=== PATIENT | female | born 1940 | race Caucasian/White ===

== ENCOUNTER 2016-12-23 10:24 | Emergency (ER) | payer MEDICARE, OTHER ==
[2016-12-23] MEDS ORDERED: AMOXicillin 250 MG CAP ONE (11:23)
[2016-12-23] MEDS ORDERED: predniSONE 20 MG TAB ONE (11:23)
--- NOTE | 2016-12-23 11:35 | ERRECORD ---
[facility] EMERGENCY RECORD HPI GENERAL (11:22 LLDO) CHIEF COMPLAINT: Patient presents for evaluation of right face, right ear and right periorbital pain for 3 days. feels like her previous sinus infections. HISTORIAN: History provided by patient. MECHANISM OF INJURY: Known mechanism, Mechanism of injury: known hay fever is flaring, No alcohol use associated with this incident, No drug use associated with this incident, No domestic violence associated with this incident. LOCATION: Symptoms are generalized. QUALITY: Pain is dull in nature, described as aching. SEVERITY: Maximum severity of symptoms moderate, Currently symptoms are moderate. TIME COURSE: Gradual onset of symptoms, Symptoms are worsening, are constant. ASSOCIATED WITH: Associated with ONLY ABOVE. EXACERBATED BY: Patient's condition exacerbated by ACTIVITY, POSITION, MOVEMENT. RELIEVED BY: Patient's condition relieved by nothing. ROS CONSTITUTIONAL: Historian reports fatigue. (11:24 LLDO) EYES: Negative eye review of systems, Historian denies eye pain, denies eye redness, denies eye discharge. (11:27 LLDO) ENT: Historian reports sinus pain, reports sore throat. (11:24 LLDO) CARDIOVASCULAR: Negative cardiovascular review of systems, Historian denies chest pain, no radiation, Historian denies diaphoresis, denies syncope. (11:27 LLDO) RESPIRATORY: Negative respiratory review of systems, Historian denies cough, denies shortness of breath, denies sputum. (11:27 LLDO) GI: Negative gastrointestinal review of systems, Historian denies abdominal pain, denies constipation, denies diarrhea, denies nausea, denies vomiting. (11:27 LLDO) GENITOURINARY FEMALE: Negative genitourinary review of systems, Historian denies dysuria, denies frequency, denies urgency. (11:27 LLDO) MUSCULOSKELETAL: Negative musculoskeletal review of systems, Historian denies arthralgias, denies back pain, denies injury, denies myalgias, denies neck pain. (11:27 LLDO) SKIN: Negative skin review of systems, Historian denies cellulitis, denies rash, denies skin changes, denies skin lesions. (11:27 LLDO) NEUROLOGIC: Historian denies confusion, denies dizziness, denies dysphasia, denies focal weakness, denies gait changes, reports headache, denies irritability, denies lethargy, denies mental status changes. (11:24 LLDO) HEMO/LYMPHATIC: Normal hematologic/lymphatic system review, Historian denies abnormal blood clotting, denies gum bleeding, denies &a-1R&a+25V*p+0X*[id number]*c202B*c15G*c2P*p-0X&a-25V&a+1R Name: Anamaria Minaya : 1940 F76 MedRec: [id number] AcctNum: [id number] Prepared: [facility] Dec 23, 2016 11:33 by Interface Page 1 of 4 pMD [facility] EMERGENCY RECORD petechiae. (11:27 LLDO) ALLERGIC/IMMUNOLOGIC: Normal allergy/immunologic system review, Historian denies eczema, denies environmental allergies, denies food allergies. (11:27 LLDO) PSYCHIATRIC: Negative psychiatric review of systems, Historian denies alcohol abuse, denies anxiety, denies depression, denies drug abuse, denies hallucinations. (11:27 LLDO) NOTES: All systems reviewed, negative except as described above. (11:24 LLDO) PAST MEDICAL HISTORY MEDICAL HISTORY: Notes: [id number], Notes: OSTEOPOROSIS, Flu vaccine not up to date, Tetanus immunization up to date, Pneumococcal vaccine not up to date, Past medical history includes history of hypertension, which has been treated. ([facility] Dec 23, 2016 10:37 JPER) FEMALE SURGICAL HISTORY: VERIFIED 12-23-16, 2BENIGN CYSTS REMOVED FROM BILATERAL BREAST, Surgical history of cholecystectomy, Surgical history of tonsillectomy. ([facility] Dec 23, 2016 10:37 JPER) PSYCHIATRIC HISTORY: Notes: DENIES, No previous psychiatric history. ([facility] Dec 23, 2016 10:37 JPER) SOCIAL HISTORY: Patient denies alcohol use, Patient denies drug use, Patient has no smoking history, Lives at home, with family. ([facility] Dec 23, 2016 10:37 JPER) NOTES: Nursing records reviewed, Agree with nursing records, Medication list reviewed. (11:26 LLDO) KNOWN ALLERGIES Entex CURRENT MEDICATIONS amLODIPine: TABLET : Strength - 10 mg : ORAL Patient Dose: 5 mg Oral once a day (in the morning). (10:38 JPER) hydrochlorothiazide: TABLET : Strength - 25 mg : ORAL Patient Dose: 12.5. (10:38 JPER) azelastine: AEROSOL, SPRAY WITH PUMP (ML) : Strength - 205.5 mcg (0.15 %) : NASAL Patient Dose: once a day (in the morning). (10:43 JPER) Flovent: AEROSOL WITH ADAPTER (GRAM) : Strength - 220 mcg : INHALATION Patient Dose: once a day (in the morning). (10:45 JPER) Sudafed: TABLET : Strength - 30 mg : ORAL Patient Dose: As Needed. (10:46 JPER) alendronate: TABLET : Strength - 35 mg : ORAL &a-1R&a+25V*p+0X*v4646H*c202B*c15G*c2P*p-0X&a-25V&a+1R Name: Anamaria Minaya : 1940 F76 MedRec: [id number] AcctNum: [id number] Prepared: Sat Dec 23, 2016 11:33 by Interface Page 2 of 4 pMD [facility] EMERGENCY RECORD Patient Dose: once a day (in the morning). (10:46 JPER) VITAL SIGNS (10:33 JPER) VITAL SIGNS: BP: 139/71, Pulse: 80, Resp: 16, Temp: 98.0 (Tympanic), O2 sat: 100 on Room Air, Time: 12/23/2016 10:33. PHYSICAL EXAM CONSTITUTIONAL: Vital signs reviewed, Patient afebrile, Pulse normal, Blood pressure normal, Respiratory rate normal, Patient appears, uncomfortable, Patient appears in pain, in moderate pain distress, Patient alert and oriented to person, place and time. (11:25 LLDO) HEAD: Head exam normal, Head exam included findings of head atraumatic, normocephalic. (11:27 LLDO) EYES: Eye exam normal, Eye exam included findings of eyelids normal to inspection, Pupils equally round and reactive to light, Extraocular muscles intact. (11:27 LLDO) ENT: Ear exam normal, Nose exam normal, Pharynx exam normal, Uvula exam normal, Tonsil exam normal, Mouth exam included findings of, teeth normal, Sinus exam included findings of frontal sinuses normal, Maxillary sinuses with, tenderness on the right, erythema on the right, swelling on the right. (11:25 LLDO) NECK: Neck exam included findings of normal range of motion, Trachea midline, Thyroid normal, no meningeal signs, no cervical adenopathy, no tenderness. (11:25 LLDO) RESPIRATORY CHEST: Respiratory exam included findings of no respiratory distress, Breath sounds clear, Chest exam included findings of chest movement symmetrical, Chest expansion equal, no tenderness. (11:25 LLDO) CARDIOVASCULAR: Cardiovascular assessment normal, Cardiovascular exam included findings of heart rate regular rate and rhythm, Heart sounds normal. (11:27 LLDO) ABDOMEN FEMALE: Abdominal exam normal, Abdominal exam included findings of abdomen nontender, Bowel sounds normal, no peritoneal signs. (11:27 LLDO) BACK: Back exam normal, Back exam included findings of normal inspection, range of motion normal. (11:27 LLDO) UPPER EXTREMITY: Upper extremity exam normal, Upper extremity exam included findings of inspection normal, Range of motion normal. (11:27 LLDO) LOWER EXTREMITY: Lower extremity exam normal, Lower extremity exam included findings of inspection normal, Range of motion normal. (11:27 LLDO) NEURO: Neuro exam normal, Neuro exam findings include patient oriented to person, place and time, Speech normal, Colleen coma scale 15. (11:27 LLDO) SKIN: Skin exam normal, Skin exam included findings of skin warm, dry, and normal in color, no rash. (11:27 LLDO) PSYCHIATRIC: Psychiatric exam normal, Psychiatric exam included &a-1R&a+25V*p+0X*[id number]*c202B*c15G*c2P*p-0X&a-25V&a+1R Name: Anamaria Minaya : 1940 F76 MedRec: [id number] AcctNum: [id number] Prepared: Sat Dec 23, 2016 11:33 by Interface Page 3 of 4 pMD [facility] EMERGENCY RECORD findings of patient oriented to person place and time, Normal affect. (11:27 LLDO) MEDICATION ADMINISTRATION SUMMARY Drug Name: amoxicillin, Dose Ordered: 500 mg, Route: Oral, Status: Given, Time: 11:12/23/2016, Drug Name: predniSONE oral, Dose Ordered: 60 mg, Route: Oral, Status: Given, Time: 11:12/23/2016, Detailed record available in Medication Service section. PROBLEM LIST No recorded problems DIAGNOSIS (11:15 LLDO) FINAL: PRIMARY: ACUTE SINUSITIS UNSPECIFIED, ADDITIONAL: Hay fever. PRESCRIPTION (11:18 LLDO) amoxicillin: CAPSULE (HARD, SOFT, ETC.) : 500 mg : ORAL : Quantity: 1 Unit: cap(s) Route: ORAL Schedule: 3 times a day Dispense: 30 May substitute. Refills: No Refills . NOTES: No Refills. predniSONE oral: TABLET : 20 mg : ORAL : Quantity: * Unit: Route: ORAL Schedule: See Notes Dispense: 2O May substitute. Refills: No Refills . NOTES: 3 TABS PER DAY FOR 3 DAYS, THEN 2 TABS PER DAY FOR 3 DAYS, THEN ONE TAB PER DAY UNTIL GONE No Refills. Tylenol-Codeine #3: TABLET : 300 mg-30 mg : ORAL : Quantity: 1-2 Unit: tab(s) Route: ORAL Schedule: every 4 hours prn Dispense: 30 Unit: tab(s) May substitute. Refills: No Refills . NOTES: No Refills. DISPOSITION PATIENT: Disposition Type: Discharge, Disposition: *Discharge Home. (11:15 LLDO) Patient left the department. (11:28 HUNTER) Willingham: HUNTER=PAM Us, Clementina DO=MD Evelyn, Daniele &a-1R&a+25V*p+0X*w1416X*c202B*c15G*c2P*p-0X&a-25V&a+1R Name: Anamaria Minaya : 1940 F76 MedRec: [id number] AcctNum: [id number] Prepared: Sat Dec 23, 2016 11:33 by Interface Page 4 of 4 pMD MTDD
--- NOTE | 2016-12-23 11:41 | PICIS ---
[facility] EMERGENCY RECORD TRIAGE (SunDec 23, 2016 10:37 JPER) PATIENT: NAME: Anamaria Minaya, AGE: 76, GENDER: female, : Sun1940, TIME OF GREET: SunDec 23, 2016 10:25, PREFERRED LANGUAGE: Kinyarwanda, RACE: WHITE, ETHNICITY: Not or , ECODE BILLING MAP: [facility], SSN: [id number], Zip Code: [address], KG WEIGHT: 77.56, PHONE: , , , PERSON ID: [id number], PCP: Rj ERICKSON LINDA. (SunDec 23, 2016 10:37 JPER) COMPLAINT: ALLERGIES. ([facility] Dec 23, 2016 10:37 JPER) ADMISSION: URGENCY: 4 Non Urgent, ADMISSION SOURCE: Home, TRANSPORT: Walk-in, BED: ED -05. ([facility] Dec 23, 2016 10:37 JPER) ASSESSMENT: Assessment: PT C/O RIGHT EAR AND EYE DISCOMFORT; RIGHT HEADACHE; SORE THROAT ONSET YEST. ([facility] Dec 23, 2016 10:37 JPER) PAIN: Location RIGHT FACIAL / EAR. ([facility] Dec 23, 2016 10:37 JPER) IMMUNIZATIONS: Flu vaccine not up to date, Tetanus immunization up to date, Pneumococcal vaccine not up to date. ([facility] Dec 23, 2016 10:37 JPER) SIRS SCORING: Heart Rate 55-109 (0), Temp range 96.8-101.1 (0), respiratory rate 12-24 (0), Mental Status altered: no (0). ([facility] Dec 23, 2016 10:37 JPER) TRIAGE SCREENING: Patient denies suicidal ideation, Patient denies presence of domestic violence. ([facility] Dec 23, 2016 10:37 JPER) PROVIDERS: TRIAGE NURSE: Clementina Us RN. ([facility] Dec 23, 2016 10:37 JPER) VITAL SIGNS: BP 139/71, Pulse 80, Resp 16, Temp 98.0, (Tympanic), O2 Sat 100, on Room Air, Time 12/23/2016 10:33. (10:33 JPER) PREVIOUS VISIT ALLERGIES: Entex. ([facility] Dec 23, 2016 10:37 JPER) KNOWN ALLERGIES Entex CURRENT MEDICATIONS amLODIPine: TABLET : Strength - 10 mg : ORAL Patient Dose: 5 mg Oral once a day (in the morning). (10:38 JPER) hydrochlorothiazide: TABLET : Strength - 25 mg : ORAL Patient Dose: 12.5. (10:38 JPER) azelastine: AEROSOL, SPRAY WITH PUMP (ML) : Strength - 205.5 mcg (0.15 %) : NASAL Patient Dose: once a day (in the morning). (10:43 JPER) Flovent: AEROSOL WITH ADAPTER (GRAM) : Strength - 220 mcg : INHALATION Patient Dose: once a day (in the morning). (10:45 JPER) Sudafed: TABLET : Strength - 30 mg : ORAL Patient Dose: As Needed. (10:46 JPER) alendronate: &a-1R&a+25V*p+0X*b6931C*c202B*c15G*c2P*p-0X&a-25V&a+1R Name: Anamaria Minaya : 1940 F76 MedRec: [id number] AcctNum: [id number] Prepared: Sat Dec 23, 2016 11:39 by Interface Page 1 of 6 pMD [facility] EMERGENCY RECORD TABLET : Strength - 35 mg : ORAL Patient Dose: once a day (in the morning). (10:46 JPER) VITAL SIGNS (10:33 JPER) VITAL SIGNS: BP: 139/71, Pulse: 80, Resp: 16, Temp: 98.0 (Tympanic), O2 sat: 100 on Room Air, Time: 12/23/2016 10:33. NURSING ASSESSMENT: ENT (10:41 JPER) CONSTITUTIONAL: Patient arrives ambulatory, Gait steady, History obtained from patient, Patient appears comfortable, Patient cooperative, Patient alert, Oriented to person, place and time, Skin warm, Skin dry, Skin normal in color, Mucous membranes pink, Mucous membranes moist, Patient is well-groomed, Patient complains of RIGHT FACIAL; RIGHT EAR PAIN; SORE THROAT, "ALLERGIES". PAIN: aching pain, to the right ear, to the throat, Pain exacerbated by nothing, Nothing has been tried to alleviate the pain. ENT: Able to swallow, Speech normal. RESPIRATORY/CHEST: Breath sounds clear, Respiratory assessment findings include respiratory effort easy, Respirations regular, Conversing normally, Neck and chest exam findings include trachea midline, Chest expansion equal, Chest movement symmetrical. NOTES: Emotional support needed and given. MEDICATION ADMINISTRATION SUMMARY Drug Name: amoxicillin, Dose Ordered: 500 mg, Route: Oral, Status: Given, Time: 11:12/23/2016, Drug Name: predniSONE oral, Dose Ordered: 60 mg, Route: Oral, Status: Given, Time: 12/23/2016, Detailed record available in Medication Service section. MEDICATION SERVICE (11:[address] [facility]) amoxicillin: Order: amoxicillin (amoxicillin trihydrate) - Dose: 500 mg : Oral Schedule: Now Ordered by: Daniele Rivas MD Entered by: Daniele Rivas MD Sat Dec 23, 2016 11:13 Documented as given by: Clementina Us RN Sat Dec 23, 2016 11:20 Patient, Medication, Dose, Route and Time verified prior to administration. Amount given: 500MG, Site: Medication administered P.O., Correct patient, time, route, dose and medication confirmed prior to administration, Patient advised of actions and side-effects prior to administration, Allergies confirmed and medications reviewed prior to administration, Administered by MERCEDES OROZCO, Patient in position of comfort, Side rails up, Cart in lowest position, Family at bedside. predniSONE oral: Order: predniSONE oral (prednisone) - Dose: 60 mg : Oral Schedule: Now &a-1R&a+25V*p+0X*l1465F*c202B*c15G*c2P*p-0X&a-25V&a+1R Name: Anamaria Minaya : 1940 F76 MedRec: [id number] AcctNum: [id number] Prepared: Sat Dec 23, 2016 11:39 by Interface Page 2 of 6 pMD [facility] EMERGENCY RECORD Ordered by: Daniele Rivas MD Entered by: Daniele Rivas MD Sat Dec 23, 2016 11:13 Documented as given by: Clementina Us RN Sat Dec 23, 2016 11:20 Patient, Medication, Dose, Route and Time verified prior to administration. Amount given: 60MG, Site: Medication administered P.O., Correct patient, time, route, dose and medication confirmed prior to administration, Patient advised of actions and side-effects prior to administration, Allergies confirmed and medications reviewed prior to administration, Administered by MERCEDES OROZCO. HPI GENERAL (11:22 LLDO) CHIEF COMPLAINT: Patient presents for evaluation of right face, right ear and right periorbital pain for 3 days. feels like her previous sinus infections. HISTORIAN: History provided by patient. MECHANISM OF INJURY: Known mechanism, Mechanism of injury: known hay fever is flaring, No alcohol use associated with this incident, No drug use associated with this incident, No domestic violence associated with this incident. LOCATION: Symptoms are generalized. QUALITY: Pain is dull in nature, described as aching. SEVERITY: Maximum severity of symptoms moderate, Currently symptoms are moderate. TIME COURSE: Gradual onset of symptoms, Symptoms are worsening, are constant. ASSOCIATED WITH: Associated with ONLY ABOVE. EXACERBATED BY: Patient's condition exacerbated by ACTIVITY, POSITION, MOVEMENT. RELIEVED BY: Patient's condition relieved by nothing. ROS CONSTITUTIONAL: Historian reports fatigue. (11:24 LLDO) EYES: Negative eye review of systems, Historian denies eye pain, denies eye redness, denies eye discharge. (11:27 LLDO) ENT: Historian reports sinus pain, reports sore throat. (11:24 LLDO) CARDIOVASCULAR: Negative cardiovascular review of systems, Historian denies chest pain, no radiation, Historian denies diaphoresis, denies syncope. (11:27 LLDO) RESPIRATORY: Negative respiratory review of systems, Historian denies cough, denies shortness of breath, denies sputum. (11:27 LLDO) GI: Negative gastrointestinal review of systems, Historian denies abdominal pain, denies constipation, denies diarrhea, denies nausea, denies vomiting. (11:27 LLDO) GENITOURINARY FEMALE: Negative genitourinary review of systems, Historian denies dysuria, denies frequency, denies urgency. (11:27 LLDO) MUSCULOSKELETAL: Negative musculoskeletal review of systems, &a-1R&a+25V*p+0X*o8983R*c202B*c15G*c2P*p-0X&a-25V&a+1R Name: Anamaria Minaya : 1940 F76 MedRec: [id number] AcctNum: [id number] Prepared: Sat Dec 23, 2016 11:39 by Interface Page 3 of 6 pMD [facility] EMERGENCY RECORD Historian denies arthralgias, denies back pain, denies injury, denies myalgias, denies neck pain. (11:27 LLDO) SKIN: Negative skin review of systems, Historian denies cellulitis, denies rash, denies skin changes, denies skin lesions. (11:27 LLDO) NEUROLOGIC: Historian denies confusion, denies dizziness, denies dysphasia, denies focal weakness, denies gait changes, reports headache, denies irritability, denies lethargy, denies mental status changes. (11:24 LLDO) HEMO/LYMPHATIC: Normal hematologic/lymphatic system review, Historian denies abnormal blood clotting, denies gum bleeding, denies petechiae. (11:27 LLDO) ALLERGIC/IMMUNOLOGIC: Normal allergy/immunologic system review, Historian denies eczema, denies environmental allergies, denies food allergies. (11:27 LLDO) PSYCHIATRIC: Negative psychiatric review of systems, Historian denies alcohol abuse, denies anxiety, denies depression, denies drug abuse, denies hallucinations. (11:27 LLDO) NOTES: All systems reviewed, negative except as described above. (11:24 LLDO) PAST MEDICAL HISTORY MEDICAL HISTORY: Notes: [id number], Notes: OSTEOPOROSIS, Flu vaccine not up to date, Tetanus immunization up to date, Pneumococcal vaccine not up to date, Past medical history includes history of hypertension, which has been treated. ([facility] Dec 23, 2016 10:37 JPER) FEMALE SURGICAL HISTORY: VERIFIED 12-23-16, 2BENIGN CYSTS REMOVED FROM BILATERAL BREAST, Surgical history of cholecystectomy, Surgical history of tonsillectomy. ([facility] Dec 23, 2016 10:37 JPER) PSYCHIATRIC HISTORY: Notes: DENIES, No previous psychiatric history. ([facility] Dec 23, 2016 10:37 JPER) SOCIAL HISTORY: Patient denies alcohol use, Patient denies drug use, Patient has no smoking history, Lives at home, with family. ([facility] Dec 23, 2016 10:37 JPER) NOTES: Nursing records reviewed, Agree with nursing records, Medication list reviewed. (11:26 LLDO) PHYSICAL EXAM CONSTITUTIONAL: Vital signs reviewed, Patient afebrile, Pulse normal, Blood pressure normal, Respiratory rate normal, Patient appears, uncomfortable, Patient appears in pain, in moderate pain distress, Patient alert and oriented to person, place and time. (11:25 LLDO) HEAD: Head exam normal, Head exam included findings of head atraumatic, normocephalic. (11:27 LLDO) EYES: Eye exam normal, Eye exam included findings of eyelids normal to inspection, Pupils equally round and reactive to light, Extraocular muscles intact. (11:27 LLDO) &a-1R&a+25V*p+0X*d7883U*c202B*c15G*c2P*p-0X&a-25V&a+1R Name: Anamaria Minaya : 1940 F76 MedRec: [id number] AcctNum: [id number] Prepared: Sat Dec 23, 2016 11:39 by Interface Page 4 of 6 pMD [facility] EMERGENCY RECORD ENT: Ear exam normal, Nose exam normal, Pharynx exam normal, Uvula exam normal, Tonsil exam normal, Mouth exam included findings of, teeth normal, Sinus exam included findings of frontal sinuses normal, Maxillary sinuses with, tenderness on the right, erythema on the right, swelling on the right. (11:25 LLDO) NECK: Neck exam included findings of normal range of motion, Trachea midline, Thyroid normal, no meningeal signs, no cervical adenopathy, no tenderness. (11:25 LLDO) RESPIRATORY CHEST: Respiratory exam included findings of no respiratory distress, Breath sounds clear, Chest exam included findings of chest movement symmetrical, Chest expansion equal, no tenderness. (11:25 LLDO) CARDIOVASCULAR: Cardiovascular assessment normal, Cardiovascular exam included findings of heart rate regular rate and rhythm, Heart sounds normal. (11:27 LLDO) ABDOMEN FEMALE: Abdominal exam normal, Abdominal exam included findings of abdomen nontender, Bowel sounds normal, no peritoneal signs. (11:27 LLDO) BACK: Back exam normal, Back exam included findings of normal inspection, range of motion normal. (11:27 LLDO) UPPER EXTREMITY: Upper extremity exam normal, Upper extremity exam included findings of inspection normal, Range of motion normal. (11:27 LLDO) LOWER EXTREMITY: Lower extremity exam normal, Lower extremity exam included findings of inspection normal, Range of motion normal. (11:27 LLDO) NEURO: Neuro exam normal, Neuro exam findings include patient oriented to person, place and time, Speech normal, Colleen coma scale 15. (11:27 LLDO) SKIN: Skin exam normal, Skin exam included findings of skin warm, dry, and normal in color, no rash. (11:27 LLDO) PSYCHIATRIC: Psychiatric exam normal, Psychiatric exam included findings of patient oriented to person place and time, Normal affect. (11:27 LLDO) EVENTS TRANSFER: Triage to Emergency Main ED -05. (Sat Dec 23, 2016 10:37 JPER) Removed from Emergency Main ED -05. (11:28 JPER) PROBLEM LIST No recorded problems DIAGNOSIS (11:15 LLDO) FINAL: PRIMARY: ACUTE SINUSITIS UNSPECIFIED, ADDITIONAL: Hay fever. DISPOSITION PATIENT: Disposition Type: Discharge, Disposition: *Discharge &a-1R&a+25V*p+0X*n5184S*c202B*c15G*c2P*p-0X&a-25V&a+1R Name: Anamaria Minaya : 1940 F76 MedRec: [id number] AcctNum: [id number] Prepared: [facility] Dec 23, 2016 11:39 by Interface Page 5 of 6 pMD [facility] EMERGENCY RECORD Home. (11:15 LLDO) Patient left the department. (11:28 JPER) INSTRUCTION (11:19 LLDO) DISCHARGE: SINUSITIS, ABX TX, HAY FEVER. FOLLOWUP: Rj ERICKSON LINDA, Internal Medicine, [address] [place] [address] [id number], [place] [id number], [phone], Follow up with Primary Care Physician in 7-10 days. SPECIAL: Follow-up with your PCP. PRESCRIPTION (11:18 LLDO) amoxicillin: CAPSULE (HARD, SOFT, ETC.) : 500 mg : ORAL : Quantity: 1 Unit: cap(s) Route: ORAL Schedule: 3 times a day Dispense: 30 May substitute. Refills: No Refills . NOTES: No Refills. predniSONE oral: TABLET : 20 mg : ORAL : Quantity: * Unit: Route: ORAL Schedule: See Notes Dispense: 2O May substitute. Refills: No Refills . NOTES: 3 TABS PER DAY FOR 3 DAYS, THEN 2 TABS PER DAY FOR 3 DAYS, THEN ONE TAB PER DAY UNTIL GONE No Refills. Tylenol-Codeine #3: TABLET : 300 mg-30 mg : ORAL : Quantity: 1-2 Unit: tab(s) Route: ORAL Schedule: every 4 hours prn Dispense: 30 Unit: tab(s) May substitute. Refills: No Refills . NOTES: No Refills. IMAGING (10:47 HUNTER) HOME MED LIST: Image captured from scanner. ADMIN (11:28 ADAM) DIGITAL SIGNATURE: MD Rivas Lloyd. Willingham: HUNTER=PAM Us, Clementina MEDINA=MD Rivas Lloyd &a-1R&a+25V*p+0X*q9320H*c202B*c15G*c2P*p-0X&a-25V&a+1R Name: Anamaria Minaya : 1940 F76 MedRec: [id number] AcctNum: [id number] Prepared: Sat Dec 23, 2016 11:39 by Interface Page 6 of 6 pMD [facility] MEDICATION RECONCILIATION You were seen in the Emergency Department on: Sat Dec 23, 2016 KNOWN ALLERGIES Entex MEDICATIONS GIVEN WHILE IN THE EMERGENCY DEPARTMENT amoxicillin (amoxicillin trihydrate) - Dose: 500 milligram(s) : Oral predniSONE oral (prednisone) - Dose: 60 milligram(s) : Oral HOME MEDICATIONS CONTINUE PRESCRIBED alendronate : TABLET : Strength - 35 mg : ORAL Continue as prescribed Patient had been taking: once a day (in the morning). amLODIPine : TABLET : Strength - 10 mg : ORAL Continue as prescribed Patient had been takin mg Oral once a day (in the morning). azelastine : AEROSOL, SPRAY WITH PUMP (ML) : Strength - 205.5 mcg (0.15 %) : NASAL Continue as prescribed Patient had been taking: once a day (in the morning). Flovent : AEROSOL WITH ADAPTER (GRAM) : Strength - 220 mcg : INHALATION Continue as prescribed Patient had been taking: once a day (in the morning). hydrochlorothiazide : TABLET : Strength - 25 mg : ORAL Continue as prescribed Patient had been takin.5. Sudafed : TABLET : Strength - 30 mg : ORAL Continue as prescribed Patient had been taking: As Needed. Notes from the emergency department Reviewed with patient PRESCRIPTIONS (3) &a-1R&a+25V*p+0X*o7273R*c202B*c15G*c2P*p-0X&a-25V&a+1R Name: Anamaria Minaya : 1940 F76 MedRec: [id number] AcctNum: [id number] Prepared: [facility] Dec 23, 2016 11:39 by Interface pMD [facility] MEDICATION RECONCILIATION Printed (3) amoxicillin : CAPSULE (HARD, SOFT, ETC.) : 500 mg : ORAL Quantity: 1, Unit: cap(s), Route: ORAL, Schedule: 3 times a day, Dispense: 30 predniSONE oral : TABLET : 20 mg : ORAL Quantity: *, Unit: *, Route: ORAL, Schedule: See Notes, Dispense: 2O &a-1R&a+25V*p+0X*n9214K*c202B*c15G*c2P*p-0X&a-25V&a+1R Name: Anamaria Minaya : 1940 F76 MedRec: [id number] AcctNum: [id number] Prepared: [facility] Dec 23, 2016 11:39 by Interface [facility]
== END 2016-12-23 11:30 | disposition home or self-care (01) ==
LOC: MADERS 10:24
DX: J30.1 Allergic rhinitis due to pollen (principal); J01.90 Acute sinusitis, unspecified; I10 Essential (primary) hypertension
CPT/HCPCS: 99283; J7506

== ENCOUNTER 2017-04-14 13:32 | Emergency (ER) | payer MEDICARE, OTHER ==
[2017-04-14] MEDS ORDERED: Triple Antibiotic Oint 1 GM Packet ONE (14:17)
[2017-04-14] MEDS ORDERED: Adacel (T-DAP) 0.5 ML VIAL ONE (14:17)
[2017-04-14] MEDS ORDERED: Naproxen 500 MG TAB ONE (14:17)
[2017-04-14] MEDS ORDERED: Cephalexin 500 MG CAP ONE (14:17)
== END 2017-04-14 14:50 | disposition home or self-care (01) ==
LOC: MADERS 13:32
DX: S81.812A Laceration without foreign body, left lower leg, initial encounter (principal); S81.811A Laceration without foreign body, right lower leg, initial encounter; Z23 Encounter for immunization; Z79.899 Other long term (current) drug therapy; I10 Essential (primary) hypertension; M81.0 Age-related osteoporosis without current pathological fracture; W45.8XXA Other foreign body or object entering through skin, initial encounter
CPT/HCPCS: 90471; 90715

== ENCOUNTER 2018-02-13 13:50 | Emergency (ER) | payer MEDICARE, OTHER | END 2018-02-13 14:10 | disposition home or self-care (01) | LOC: MADERS 13:50 | DX: S80.862A Insect bite (nonvenomous), left lower leg, initial encounter (principal); S80.861A Insect bite (nonvenomous), right lower leg, initial encounter; S40.862A Insect bite (nonvenomous) of left upper arm, initial encounter; S40.861A Insect bite (nonvenomous) of right upper arm, initial encounter; M81.0 Age-related osteoporosis without current pathological fracture; I10 Essential (primary) hypertension; Z79.899 Other long term (current) drug therapy; Z79.1 Long term (current) use of non-steroidal anti-inflammatories (NSAID); Z79.891 Long term (current) use of opiate analgesic; W57.XXXA Bitten or stung by nonvenomous insect and other nonvenomous arthropods, initial encounter | CPT/HCPCS: 99282 ==

== ENCOUNTER 2020-02-02 15:45 | Emergency (ER) | payer MEDICARE | END 2020-02-02 17:05 | disposition home or self-care (01) | LOC: MADERS 15:45 | DX: J30.2 Other seasonal allergic rhinitis (principal); M81.0 Age-related osteoporosis without current pathological fracture; I10 Essential (primary) hypertension; Z79.899 Other long term (current) drug therapy | CPT/HCPCS: 99283 ==

== ENCOUNTER 2020-02-05 15:21 | Emergency (ER) | payer MEDICARE | END 2020-02-05 16:52 | disposition home or self-care (01) | LOC: MADERS 15:21 | DX: J20.8 Acute bronchitis due to other specified organisms (principal); I10 Essential (primary) hypertension; Z79.899 Other long term (current) drug therapy | CPT/HCPCS: 99283 ==

== ENCOUNTER 2022-01-21 21:35 | Emergency (ER) | payer MEDICARE ==
[2022-01-21] MEDS ORDERED: Cephalexin 250 MG CAP ONE (21:59)
[2022-01-21] MEDS ORDERED: Boostrix 0.5 ML (Tdap) VIAL ONE (21:59)
== END 2022-01-21 22:24 | disposition home or self-care (01) ==
LOC: MADERS 21:35
DX: L03.116 Cellulitis of left lower limb (principal); I10 Essential (primary) hypertension; M19.90 Unspecified osteoarthritis, unspecified site; M81.0 Age-related osteoporosis without current pathological fracture; Z23 Encounter for immunization; Z79.899 Other long term (current) drug therapy
CPT/HCPCS: 90471; 90715

== ENCOUNTER 2022-04-13 11:31 | Emergency (ER) | payer MEDICARE | END 2022-04-13 12:05 | disposition home or self-care (01) | LOC: MADERS 11:31 | DX: S10.96XA Insect bite of unspecified part of neck, initial encounter (principal); S00.412A Abrasion of left ear, initial encounter; I10 Essential (primary) hypertension; M19.90 Unspecified osteoarthritis, unspecified site; M81.0 Age-related osteoporosis without current pathological fracture; W57.XXXA Bitten or stung by nonvenomous insect and other nonvenomous arthropods, initial encounter; Z79.899 Other long term (current) drug therapy | CPT/HCPCS: 99282 ==

== ENCOUNTER 2022-04-15 16:56 | Emergency (ER) | payer MEDICARE | END 2022-04-15 17:31 | disposition home or self-care (01) | LOC: MADERS 16:56 | DX: H60.502 Unspecified acute noninfective otitis externa, left ear (principal); I10 Essential (primary) hypertension; M19.90 Unspecified osteoarthritis, unspecified site; M81.0 Age-related osteoporosis without current pathological fracture; Z79.899 Other long term (current) drug therapy | CPT/HCPCS: 99282 ==

== ENCOUNTER 2022-04-18 13:38 | Emergency (ER) | payer MEDICARE | END 2022-04-18 14:25 | disposition home or self-care (01) | LOC: MADERS 13:38 | DX: B02.9 Zoster without complications (principal); I10 Essential (primary) hypertension; M81.0 Age-related osteoporosis without current pathological fracture; M19.90 Unspecified osteoarthritis, unspecified site | CPT/HCPCS: 99282 ==

== ENCOUNTER 2023-01-10 14:45 | Emergency (ER) | payer MEDICARE, OTHER | END 2023-01-10 15:29 | disposition home or self-care (01) | LOC: MADERS 14:45 | DX: H60.91 Unspecified otitis externa, right ear (principal); H66.91 Otitis media, unspecified, right ear; I10 Essential (primary) hypertension | CPT/HCPCS: 99282 ==